=== PATIENT | male | born 1980 | race Native Hawaiian/Other Pacific Islander ===

== ENCOUNTER 2018-07-24 08:33 | Outpatient (CLI) | payer OTHER | END 2018-07-24 20:32 | disposition home or self-care (01) | LOC: RAD 08:33 | DX: F78 Other intellectual disabilities (principal); I10 Essential (primary) hypertension; M25.571 Pain in right ankle and joints of right foot; M54.89 Other dorsalgia; Z02.71 Encounter for disability determination ==

== ENCOUNTER 2019-04-15 12:24 | Outpatient (CLI) | payer OTHER | END 2019-04-15 23:29 | disposition home or self-care (01) | LOC: RAD 12:24 | DX: M79.671 Pain in right foot (principal) ==

== ENCOUNTER 2021-01-27 12:01 | Emergency (ER) | payer OTHER ==
[~2021-01-27] VITALS: Ht 162.6 cm; Wt 101.2 kg
[2021-01-27 12:07] VITALS: BP 134/98; TEMP 98.4
== END 2021-01-27 12:35 | disposition home or self-care (01) ==
LOC: ED 12:01
DX: H10.89 Other conjunctivitis (principal); B96.89 Other specified bacterial agents as the cause of diseases classified elsewhere; J30.89 Other allergic rhinitis
CPT/HCPCS: 99282

== ENCOUNTER 2021-12-04 22:02 | Emergency (ER) | payer OTHER ==
[~2021-12-04] VITALS: Ht 170.2 cm; Wt 99.3 kg
[2021-12-04 22:42] LABS: PLATELET COUNT 291 K/uL (142-355)
[2021-12-04 22:46] LABS: POTASSIUM 4.4 mmol/L (3.6-5.2)
[2021-12-04 23:02] LABS: PARTIAL THROMBOPLASTIN TIME 25.6 SECONDS (24.5-33.6)
[2021-12-04 23:15] VITALS: BP 143/88; TEMP 98.1
== END 2021-12-04 23:16 | disposition home or self-care (01) ==
LOC: ED 22:02
PROVIDERS: Hospitalist
DX: I16.0 Hypertensive urgency (principal)
CPT/HCPCS: 36415; 80053; 82550; 83880; 84484; 85027; 85610; 85730; 93005; 99283